=== PATIENT | female | born 1960 | race Caucasian/White ===

== ENCOUNTER 2022-10-27 17:31 | Emergency (ER) | payer OTHER, BC ==
[2022-10-27] MEDS ORDERED: MORPHINE 2 MG/ML CARPUJECT IVP STA (17:52)
[2022-10-27] MEDS ORDERED: ONDANSETRON 4 MG/2 ML VIAL IVP STA (17:53)
--- NOTE | 2022-10-27 17:54 | ED Physician Documentation ---
History of Present Illness - Stated complaint Stated Complaint: ABD PX - Chief complaint Chief Complaint: Abd Pain - History obtained from History obtained from: Patient - Additonal information Additional information: 62-year-old female with past medical history of diverticulitis presents with lower abdominal pain that started suddenly this afternoon around lunchtime. She states pain started on the left side of her abdomen and is traveled across the lower part of the abdomen. It is stabbing in nature stating it feels like a knife has been put inside of me and twisted. It does come and go. She took 2 tablets of E[place] at home that she had leftover from a wrist surgery prior to coming in and that helped somewhat but did not resolve the pain. She was feels nauseous but has not vomited. Denies diarrhea, constipation, urinary symptoms, has not had a fever or chills, no chest pain or difficulty breathing. She has no history of kidney stones, no other abdominal history, still has her appendix. Review of Systems Constitutional: reports: Reviewed and negative Cardiac: reports: Reviewed and negative Respiratory: reports: Reviewed and negative GI: reports: Abdominal Pain, Nausea. denies: Abdominal Swelling, Vomiting, Constipation, Diarrhea, Hematemesis, Bloody / black stool : reports: Reviewed and negative Skin: reports: Reviewed and negative Musculoskeletal: reports: Reviewed and negative Neurologic: reports: Reviewed and negative PD PAST MEDICAL HISTORY - Present Medications Home Medications: Ambulatory Orders Medication Instructions Recorded Confirmed Citalopram [CeleXA] 10 mg PO DAILY 10/27/22 10/27/22 Esomeprazole Magnesium [Nexium] 20 mg PO DAILY 10/27/22 10/27/22 Estrogen Ring 10/27/22 HYDROcod/ACETAM 5/325 [Eaton 5/325] 2 tablet PO ONCE 10/27/22 10/27/22 Ondansetron Odt [Zofran] 4 mg TL Q6H PRN #10 tablet 10/27/22 - Allergies Allergies/Adverse Reactions: Allergies Allergy/AdvReac Type Severity Reaction Status Date / Time No Known Drug Allergies Allergy Verified 10/27/22 17:38 PD ED PE NORMAL - Vitals Vital signs reviewed: Yes - General General: Alert and oriented X 3, No acute distress, Well developed/nourished - HEENT HEENT: Atraumatic, Pharynx benign - Neck Neck: Supple, no meningeal sign, No JVD - Cardiac Cardiac: RRR, No murmur, No gallop, No rub - Respiratory Respiratory: No respiratory distress, Clear bilaterally - Abdomen Abdomen: Normal bowel sounds, Soft, Non distended, No organomegaly, Other (Tenderness left lower quadrant, and mid lower quadrant, no right lower quadrant Bidor quadrant and epigastric or upper abdominal pain with palpation. No masses or guarding) Results - Vitals Vitals: Vital Signs - 24 hr 10/27/22 17:37 Temperature 36.4 C L Heart Rate 65 Respiratory 16 Rate Blood Pressure 133/68 H O2 Saturation 97 Oxygen O2 Source Room air - Labs Labs: Laboratory Tests 10/27/22 10/27/22 10/27/22 18:07 18:07 18:19 WBC 7.9 RBC 4.70 Hgb 13.6 Hct 41.7 MCV 88.7 MCH 28.9 MCHC 32.6 RDW 13.8 Plt Count 290 MPV 9.8 Neut # (Auto) 5.1 Lymph # (Auto) 2.0 Robertson # (Auto) 0.6 Eos # (Auto) 0.2 Baso # (Auto) 0.1 Absolute Nucleated RBC 0.00 Nucleated RBC % 0.0 Sodium 139 Potassium 3.7 Chloride 103 Carbon Dioxide 27 Anion Gap 9.0 BUN 20 Creatinine 0.8 Estimated GFR (MDRD) 73 L Glucose 93 Calcium 9.5 Total Bilirubin 0.6 AST 23 ALT 31 Alkaline Phosphatase 60 Total Protein 7.4 Albumin 4.5 Globulin 2.9 Albumin/Globulin Ratio 1.6 Lipase 29 Urine Color YELLOW Urine Clarity CLEAR Urine pH 5.5 Ur Specific [place] >=1.030 H Urine Protein NEGATIVE Urine Glucose (UA) NEGATIVE Urine Ketones TRACE Urine Occult Blood NEGATIVE Urine Nitrite NEGATIVE Urine Bilirubin NEGATIVE Urine Urobilinogen 0.2 (NORMAL) Ur Leukocyte Esterase NEGATIVE Ur Microscopic Review NOT INDICATED Urine Culture Comments NOT INDICATED - Rads (name of study) No standard instances Relevant Findings:: Final report received PD Medical Decision Making - ED course Complexity details: reviewed results, re-evaluated patient, considered differential, d/w patient ED course: 62-year-old female presented with lower abdominal pain as described in HPI. She is well-appearing on physical exam, afebrile with stable vital signs. Differentials considered included diverticulitis, UTI or kidney stone or Jamar nephritis, constipation. We obtained a CBC CMP and urinalysis all of which were stable, there is no sign of UTI or other infection. She was given fluids and antiemetics with improvement in her symptoms or not complete resolution. Patient remained concerned about her symptoms despite reassurance therefore CT scan was obtained and this was negative. Patient was advised that At this time there appeared to be no emergent cause of her symptoms with stable labs and CTA T scan. I recommended Tylenol, ibuprofen, clear good diet and to monitor symptoms. If she had new or worsening symptoms follow-up with PCP or return to the ER.She is stable for discharge home now with her . Departure - Departure Disposition: , Self Care Clinical Impression: Abdominal pain Qualifiers: Abdominal location: left lower quadrant Qualified Code(s): R10.32 - Left lower quadrant pain Condition: Good Instructions: ED Abdominal Pain Female Non-Specific Abdominal Pain Prescriptions: Ondansetron Odt [Zofran] 4 mg TL Q6H PRN #10 tablet PRN Reason: Nausea / Vomiting Comments: Your labs and CT scan are reassuring. There is no clear cause of your lower abdominal pain at this time. There does not seem to be any infection now or emergent surgical condition. He may take Tylenol or ibuprofen, and I recommend adhering to a clear liquid diet until your symptoms improve. If you have worsening symptoms, develop fever, or new concerns return to the ER.
[2022-10-27 18:13] LABS: BASOPHILS # (AUTO) 0.1 10^3/uL (0.0-0.1); BASOPHILS % (AUTO) 0.9 %; EOSINOPHILS # (AUTO) 0.2 10^3/uL (0.0-0.7); EOSINOPHILS % (AUTO) 2.4 %; HCT - HEMATOCRIT 41.7 % (37.0-47.0); HGB - HEMOGLOBIN 13.6 g/dL (12.0-16.0); LYMPHOCYTES % (AUTO) 24.8 %; MEAN CORPUSCULAR HEMOGLOBIN 28.9 pg (27.0-31.0); MEAN CORPUSCULAR HGB CONC 32.6 g/dL (32.0-36.0); MEAN CORPUSCULAR VOLUME 88.7 fL (81.0-99.0); MEAN PLATELET VOLUME 9.8 fL (7.9-10.8); MONOCYTES # (AUTO) 0.6 10^3/uL (0.0-1.0); MONOCYTES % (AUTO) 7.6 %; NEUTROPHILS # (AUTO) 5.1 10^3/uL (1.5-6.6); NEUTROPHILS % (AUTO) 64.2 %; PLT - PLATELET COUNT 290 10^3/uL (130-450); RED CELL DISTRIBUTION WIDTH 13.8 % (12.0-15.0); WHITE BLOOD COUNT 7.9 x10^3/uL (4.8-10.8)
[2022-10-27 18:24] LABS: BILIRUBIN,URINE NEGATIVE (NEGATIVE); GLUCOSE, URINE (UA) NEGATIVE (NEGATIVE); KETONES,URINE (UA) TRACE mg/dL (NEGATIVE); LEUKOCYTE ESTERASE, URINE NEGATIVE (NEGATIVE); NITRITE,URINE NEGATIVE (NEGATIVE); OCCULT BLOOD,URINE NEGATIVE (NEGATIVE); PH,URINE 5.5 PH (5.0-7.5); PROTEIN,URINE NEGATIVE (NEGATIVE); UROBILINOGEN,URINE 0.2 (NORMAL) E.U./dL (NORMAL)
[2022-10-27 18:24] LABS: ALBUMIN 4.5 g/dL (3.2-5.5); ALBUMIN/GLOBULIN RATIO 1.6 (1.0-2.2); BILIRUBIN,TOTAL 0.6 mg/dL (0.2-1.0); CALCIUM 9.5 mg/dL (8.5-10.3); CREATININE 0.8 mg/dL (0.4-1.0); POTASSIUM 3.7 mmol/L (3.5-5.0); TOTAL PROTEIN 7.4 g/dL (6.7-8.2)
[2022-10-27 18:26] LABS: CLARITY,URINE CLEAR (CLEAR)
[2022-10-27] MEDS ORDERED: KETOROLAC 30 MG/ML VIAL IVP STA (18:31)
[2022-10-27] MEDS ORDERED: iohexoL-300 100 ML VIAL ONE (18:37)
[2022-10-27] MEDS ORDERED: iohexoL-300 100 ML VIAL IVP ONE (18:59)
--- NOTE | 2022-10-27 19:09 | CT Report ---
PROCEDURE: ABDOMEN/PELVIS W INDICATIONS: LLQ pain, eval for diverticulitis CONTRAST: : 100ml omni 300 TECHNIQUE: After the administration of IV contrast, 5 mm thick sections acquired from the diaphragms to the symp hysis. 5 mm thick coronal and sagittal reformats were acquired. For radiation dose reduction, the f ollowing was used: automated exposure control, adjustment of mA and/or kV according to patient size. COMPARISON: None. FINDINGS: Image quality: Excellent. Lung bases and heart: Unremarkable. Liver: Unremarkable. Gallbladder and biliary tree: Removed. Spleen: Unremarkable. Pancreas: Unremarkable. Adrenals: Unremarkable. Kidneys and ureters: Unremarkable. Bowel and peritoneum: In this patient with this given history, scrutiny is given to the sigmoid:. No significant diverticula formation can be seen. No regional inflammatory change can be seen. No significant colonic abnormality is seen. No significant small bowel abnormality is seen. A normal appendix is incidentally noted. No significant gastric abnormality. Lymph nodes: No central or retroperitoneal adenopathy. Vessels: Unremarkable. PELVIS Reproductive organs: The uterus demonstrates an unremarkable appearance for age. No adnexal masses ar e seen. A vaginal pessary can be seen. Bladder: Unremarkable. Lymph nodes: Unremarkable. Bones: No aggressive osseous abnormality. Other: None. IMPRESSION: A cause of left lower quadrant pain is not seen. Negative for diverticulitis. Normal appendix. Additional findings: Cholecystectomy Vaginal pessary Reviewed by: Pablito Kramer MD on 10/27/2022 6:08 PM GARRY Approved by: Pablito Kramer MD on 10/27/2022 6:08 PM ARMARIS Station ID: [id number]
[2022-10-27 19:33] VITALS: BP 118/76
== END 2022-10-27 19:32 | disposition home or self-care (01) ==
LOC: ED 17:31
DX: R10.32 Left lower quadrant pain (principal)
CPT/HCPCS: 36415; 74177; 80053; 81003; 83690; 85025; 96374; 96375; 99284; Q9967; 81001; 87086